=== PATIENT | female | born 1950 ===

== ENCOUNTER 2017-11-04 08:13 | Observation (INO) | payer BC ==
[2017-11-04] MEDS ORDERED: Sodium Chloride 0.9% 2.5 ML Syringe FLUSH PRN (08:23)
[2017-11-04] MEDS ORDERED: Sodium Chloride 0.9% 10 ML Syringe FLUSH PRN (08:23)
[2017-11-04] MEDS ORDERED: Sodium Chloride 0.9% 1,000 ML IV ONE (08:23)
[2017-11-04] MEDS ORDERED: Aspirin 81 MG Tab.Chew PO ONE (08:23)
[2017-11-04] MEDS ORDERED: LORazepam 2 MG/ML MDV IVPUSH ONE (08:24)
--- NOTE | 2017-11-04 08:28 | EDM.PDOC ---
ED HPI GENERAL MEDICAL PROBLEM - General Chief Complaint: Respiratory Problem Stated Complaint: CHEST PAIN Time Seen by Provider: 11/04/17 08:16 Source of Information: Reports: Patient History Limitations: Reports: No Limitations - History of Present Illness INITIAL COMMENTS - FREE TEXT/NARRATIVE: History of present illness: []Patient presents with shortness of breath and chest pain with breathing. Patient was seen by her doctor yesterday for cough and feels upset that she was not admitted to get her blood sugar down and that she was not prescribed cough medicine. She is also upset stating that this episode started she was at work and she feels that she has a boss that dislikes her and is trying to get her fired. Review of systems: As per history of present illness and below otherwise all systems reviewed and negative. Past medical history: As per history of present illness and as reviewed below otherwise noncontributory. Surgical history: As per history of present illness and as reviewed below otherwise noncontributory. Social history: No reported history of drug or alcohol abuse. Family history: As per history of present illness and as reviewed below otherwise noncontributory. Physical exam: General: Well developed, well nourished, hyperventilating HEENT: Atraumatic, normocephalic, pupils reactive, negative for conjunctival pallor or scleral icterus, mucous membranes moist, throat clear, neck supple, nontender, trachea midline. Lungs: Clear to auscultation, breath sounds equal bilaterally, chest nontender. Heart: S1S2, regular, negative for clicks, rubs, or JVD. Abdomen: Soft, nondistended, nontender. Negative for masses or hepatosplenomegaly. Negative for costovertebral tenderness. Pelvis: Stable nontender. Genitourinary: Deferred. Rectal: Deferred. Extremities: Atraumatic, negative for cords or calf pain. Neurovascular unremarkable. Neuro: Awake, alert, oriented. Cranial nerves II through XII unremarkable. Cerebellum unremarkable. Motor and sensory unremarkable throughout. Exam nonfocal. Diagnostics: []Labs showed glucose of 377 with a CO2 of 17. Repeat glucose after insulin was 88. Therapeutics: []Patient was given some IV hydration, insulin and Ativan for her hyperventilation Impression: []Uncontrolled diabetes, dehydration, anxiety Plan: []Admit for observation for IV fluids and glucose control to the hospitalist Definitive disposition and diagnosis as appropriate pending reevaluation and review of above. - Related Data Allergies Allergy/AdvReac Type Severity Reaction Status Date / Time No Known Allergies Allergy Verified 11/04/17 08:14 Home Meds: Home Meds Multivitamin [Multi-Vitamin Daily] 1 each PO DAILY 04/30/16 [History] Past Medical History HEENT History: Reports: None Cardiovascular History: Reports: None Respiratory History: Reports: None Gastrointestinal History: Reports: None Genitourinary History: Reports: None [employer] History: Reports: Musculoskeletal History: Reports: None Neurological History: Reports: None Psychiatric History: Reports: None Endocrine/Metabolic History: Reports: Diabetes, Type II Hematologic History: Reports: None Immunologic History: Reports: None Oncologic (Cancer) History: Reports: None Dermatologic History: Reports: None - Past Surgical History Head Surgeries/Procedures: Reports: None HEENT Surgical History: Reports: Tonsillectomy Cardiovascular Surgical History: Reports: None Respiratory Surgical History: Reports: None GI Surgical History: Reports: Cholecystectomy Female Surgical History: Reports: Section Endocrine Surgical History: Reports: None Neurological Surgical History: Reports: None Musculoskeletal Surgical History: Reports: None Oncologic Surgical History: Reports: None Dermatological Surgical History: Reports: None Social & Family History - Family History Family Medical History: Noncontributory - Tobacco Use Smoking Status *Q: Never Smoker - Caffeine Use Caffeine Use: Reports: Coffee - Recreational Drug Use Recreational Drug Use: No ED ROS GENERAL - Review of Systems Review Of Systems: See Below (See history of present illness) ED EXAM, GENERAL - Physical Exam Exam: See Below (See history of present illness) Course - Vital Signs Last Recorded V/S: Last Vital Signs Temp 96.9 F 11/04/17 08:15 Pulse 67 11/04/17 10:42 Resp 18 11/04/17 10:42 BP 114/90 11/04/17 10:42 Pulse Ox 99 11/04/17 10:42 - Orders/Labs/Meds Orders: Active Orders 24 hr Category Date Time Status Patient Status [ADT] Stat ADT 11/04/17 11:13 Active EKG Documentation Completion [RC] STAT Care 11/04/17 08:23 Active POC Glucose [Blood Glucose Check, Bedside] [RC] ONETIME Care 11/04/17 11:02 Active Sodium Chloride 0.9% [Normal Saline] 500 ml Med 11/04/17 09:00 Active IV STAT Sodium Chloride 0.9% [Saline Flush] Med 11/04/17 08:23 Active 10 ml FLUSH ASDIRECTED PRN Sodium Chloride 0.9% [Saline Flush] Med 11/04/17 08:23 Active 2.5 ml FLUSH ASDIRECTED PRN Saline Lock Insert [OM.PC] Stat Oth 11/04/17 08:23 Ordered Medication Orders Sodium Chloride (Normal Saline) 500 mls @ 999 mls/hr IV STAT KENIA Last Admin: 11/04/17 08:56 Dose: 999 mls/hr Sodium Chloride (Saline Flush) 10 ml FLUSH ASDIRECTED PRN PRN Reason: Keep Vein Open Sodium Chloride (Saline Flush) 2.5 ml FLUSH ASDIRECTED PRN PRN Reason: Keep Vein Open Labs: Laboratory Tests 11/04/17 11/04/17 11/04/17 Range/Units 08:36 08:36 10:48 WBC 7.03 (4.0-11.0) K/uL RBC 4.78 (4.30-5.90) M/uL Hgb 14.9 (12.0-16.0) g/dL Hct 40.9 (36.0-46.0) % MCV 85.6 (80.0-98.0) fL MCH 31.2 (27.0-32.0) pg MCHC 36.4 (31.0-37.0) g/dL RDW Std Deviation 38.5 (28.0-62.0) fl RDW Coeff of Bulmaro 12 (11.0-15.0) % Plt Count 226 (150-400) K/uL MPV 9.90 (7.40-12.00) fL Neut % (Auto) 43.5 L (48.0-80.0) % Lymph % (Auto) 47.5 H (16.0-40.0) % [place] % (Auto) 8.3 (0.0-15.0) % Eos % (Auto) 0.6 (0.0-7.0) % Baso % (Auto) 0.1 (0.0-1.5) % Neut # (Auto) 3.1 (1.4-5.7) K/uL Lymph # (Auto) 3.3 H (0.6-2.4) K/uL [place] # (Auto) 0.6 (0.0-0.8) K/uL Eos # (Auto) 0.0 (0.0-0.7) K/uL Baso # (Auto) 0.0 (0.0-0.1) K/uL Nucleated RBC % 0.0 /100WBC Nucleated RBCs # 0 K/uL Sodium 135 L (136-146) mmol/L Potassium 3.7 (3.5-5.1) mmol/L Chloride 105 (98-110) mmol/L Carbon Dioxide 17 L (21-31) mmol/L BUN 14 (6.0-23.0) mg/dL Creatinine 0.8 (0.6-1.5) mg/dL Est Cr Clr Drug Dosing 58.77 mL/min Estimated GFR (MDRD) > 60.0 ml/min Glucose 337 H (60-110) mg/dL Calcium 9.2 (8.8-10.8) mg/dL Total Bilirubin 0.7 (0.1-1.5) mg/dL AST 11 (5-40) IU/L ALT 17 (8-54) IU/L Alkaline Phosphatase 111 (40-150) Troponin I < 0.10 (0.0-0.29) NG/ML Total Protein 6.8 (6.0-8.0) g/dL Albumin 3.8 (3.4-4.8) g/dL Globulin 3.0 (2.0-3.5) g/dL Albumin/Globulin Ratio 1.3 (1.3-2.8) Urine Color YELLOW Urine Appearance CLEAR Urine pH 6.0 (5.0-8.0) Ur Specific [place] 1.015 (1.001-1.035) Urine Protein NEGATIVE (NEGATIVE) mg/dL Urine Glucose (UA) >=1000 (NEGATIVE) mg/dL Urine Ketones 15 H (NEGATIVE) mg/dL Urine Occult Blood NEGATIVE (NEGATIVE) Urine Nitrite NEGATIVE (NEGATIVE) Urine Bilirubin NEGATIVE (NEGATIVE) Urine Urobilinogen 0.2 (<2.0) EU/dL Ur Leukocyte Esterase NEGATIVE (NEGATIVE) Urine RBC 0-1 (0-2/HPF) Urine WBC 0-1 (0-5/HPF) Ur Epithelial Cells RARE (NONE-FEW) Urine Bacteria RARE (NEGATIVE) Meds: Medications Generic Name Dose Route Start Last Admin Trade Name Michele PRN Reason Stop Dose Admin Sodium Chloride 500 mls @ 999 mls/hr 11/04/17 09:00 11/04/17 08:56 Normal Saline IV 999 mls/hr STAT KENIA Administration Sodium Chloride 10 ml 11/04/17 08:23 Saline Flush FLUSH ASDIRECTED PRN Keep Vein Open Sodium Chloride 2.5 ml 11/04/17 08:23 Saline Flush FLUSH ASDIRECTED PRN Keep Vein Open Discontinued Medications Generic Name Dose Route Start Last Admin Trade Name Michele PRN Reason Stop Dose Admin Aspirin 324 mg 11/04/17 08:23 11/04/17 08:57 Aspirin PO 11/04/17 08:24 324 mg ONETIME ONE Administration Sodium Chloride 1,000 mls @ 999 mls/hr 11/04/17 08:23 11/04/17 09:18 Normal Saline IV 11/04/17 09:23 Not Given .Bolus ONE Insulin Human Regular 10 unit 11/04/17 10:17 11/04/17 10:43 Novolin R IVPUSH 11/04/17 10:18 10 units ONETIME ONE Administration Protocol Lorazepam 1 mg 11/04/17 08:24 11/04/17 08:57 Ativan IVPUSH 11/04/17 08:25 1 mg ONETIME ONE Administration Departure - Departure Time of Disposition: 11:56 Disposition: Refer to Observation Condition: Good Clinical Impression: Uncontrolled diabetes mellitus Qualifiers: Diabetes mellitus type: type 1 Diabetes mellitus complication status: without complication Qualified Code(s): E10.65 - Type 1 diabetes mellitus with hyperglycemia - Discharge Information - My Orders Last 24 Hours: My Active Orders 11/04/17 08:23 EKG Documentation Completion [RC] STAT Sodium Chloride 0.9% [Saline Flush] 10 ml FLUSH ASDIRECTED PRN Sodium Chloride 0.9% [Saline Flush] 2.5 ml FLUSH ASDIRECTED PRN Saline Lock Insert [OM.PC] Stat 11/04/17 09:00 Sodium Chloride 0.9% [Normal Saline] 500 ml IV STAT 11/04/17 11:02 POC Glucose [Blood Glucose Check, Bedside] [RC] ONETIME 11/04/17 11:13 Patient Status [ADT] Stat - Assessment/Plan Last 24 Hours: My Active Orders 11/04/17 08:23 EKG Documentation Completion [RC] STAT Sodium Chloride 0.9% [Saline Flush] 10 ml FLUSH ASDIRECTED PRN Sodium Chloride 0.9% [Saline Flush] 2.5 ml FLUSH ASDIRECTED PRN Saline Lock Insert [OM.PC] Stat 11/04/17 09:00 Sodium Chloride 0.9% [Normal Saline] 500 ml IV STAT 11/04/17 11:02 POC Glucose [Blood Glucose Check, Bedside] [RC] ONETIME 11/04/17 11:13 Patient Status [ADT] Stat
[2017-11-04] MEDS ORDERED: Sodium Chloride 0.9% 500 ML IV SCH (09:00)
--- NOTE | 2017-11-04 09:07 | CR ---
EXAMINATION: Portable chest radiograph. HISTORY: Shortness of breath. FINDINGS: The trachea is midline. The cardiomediastinal silhouette is within normal limits. No pulmonary infilt rates, effusions or pneumothorax. Osseous structures appear unremarkable. IMPRESSION: No acute cardiopulmonary process.
[2017-11-04 09:09] LABS: CHLORIDE,CL 105 mmol/L (98-110); SODIUM,NA 135 mmol/L (136-146)
[2017-11-04] MEDS ORDERED: Insulin Regular, Human 100 Units/ML 10 ML Vial IVPUSH ONE (10:17)
--- NOTE | 2017-11-04 11:41 | PCM.HP ---
H&P History of Present Illness - General Date of Service: 11/04/17 Admit Problem/Dx: Admission Diagnosis/Problem Admission Diagnosis/Problem Diabetes mellitus Source of Information: Patient History Limitations: Reports: No Limitations - History of Present Illness Initial Comments - Free Text/Narative: 66 yo female presenting to ER with a chief complaint of sob and mild chest pain with pmh of type II diabetes. Patient intially presented to the residency clinic where Dr. Maloney is her PCP. She was complaining of sob and chest pain so was sent to the ED for further evaluation. States the chest pain is continuous mild without radiation left substernal without associated n/v or diaphoresis. She also reports anxiety and has been hyperventilating and feeling short of breath. She was seen the previous Saturday by her PCP Dr. Maloney for mild sob and elevated sugars (300 's) but was not admitted at that time. In the ED, CBC and CXR were unremarkable. CMP revealed decreased bicarbonate 17 and hyperglycemia at 337. Initial troponin was negative. Patient was mildly hypertensive with a blood pressure 156/56 with 100% oxygenation on room air. Patient was admitted for shortness of breath/chest pain. 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: Musculoskeletal History: Reports: None Neurological History: Reports: None Psychiatric History: Reports: None Endocrine/Metabolic History: Reports: Diabetes, Type II Hematologic History: Reports: None Immunologic History: Reports: None Oncologic (Cancer) History: Reports: None Dermatologic History: Reports: None - Past Surgical History Head Surgeries/Procedures: Reports: None HEENT Surgical History: Reports: Tonsillectomy Cardiovascular Surgical History: Reports: None Respiratory Surgical History: Reports: None GI Surgical History: Reports: Cholecystectomy Female Surgical History: Reports: Section Endocrine Surgical History: Reports: None Neurological Surgical History: Reports: None Musculoskeletal Surgical History: Reports: None Oncologic Surgical History: Reports: None Dermatological Surgical History: Reports: None Social & Family History - Family History Family Medical History: Noncontributory - Tobacco Use Smoking Status *Q: Never Smoker - Caffeine Use Caffeine Use: Reports: Coffee - Recreational Drug Use Recreational Drug Use: No H&P Review of Systems - Review of Systems: Review Of Systems: See Below General: Denies: Fever HEENT: Reports: Headaches. Denies: Sinus Congestion, Sore Throat Pulmonary: Reports: Shortness of Breath. Denies: Wheezing, Cough, Sputum Cardiovascular: Reports: Chest Pain. Denies: Palpitations, Edema Gastrointestinal: Denies: Abdominal Pain, Diarrhea, Nausea, Vomiting Genitourinary: Denies: Dysuria, Hematuria Musculoskeletal: Denies: Neck Pain, Leg Pain Skin: Denies: Cyanosis Psychiatric: Reports: Anxiety. Denies: Confusion Neurological: Reports: Headache. Denies: Confusion, Dizziness, Numbness Hematologic/Lymphatic: Denies: Anemia Exam - Exam Exam: See Below - Vital Signs Vital Signs: Last Vital Signs Temp 96.9 F 11/04/17 08:15 Pulse 67 11/04/17 10:42 Resp 18 11/04/17 10:42 BP 114/90 11/04/17 10:42 Pulse Ox 99 11/04/17 10:42 Weight: 58.695 kg - Exam Quality Assessment: DVT Prophylaxis General: Alert, Oriented, Cooperative HEENT: Conjunctiva Clear, EACs Clear, EOMI, Hearing Intact, Mucosa Moist & [place] , Nares Patent, Normal Nasal Septum, Posterior Pharynx Clear, PERRLA Neck: Supple, Trachea Midline, 2 Lungs: Clear to Auscultation, Normal Respiratory Effort Cardiovascular: Regular Rate, Regular Rhythm, Normal S1, Normal S2 GI/Abdominal Exam: Normal Bowel Sounds, Soft, Non-Tender, No Organomegaly, No Distention Back Exam: Normal Inspection Extremities: Normal Inspection, Non-Tender, No Pedal Edema, Normal Capillary Refill. No: Garima's Sign Peripheral Pulses: 2+: Radial (L), Radial (R), Posterior Tibial (L), Posterior Tibial (R), Dorsalis Pedis (L), Dorsalis Pedis (R) Skin: Warm, Dry, Intact Neurological: Cranial Nerves Intact Neuro Extensive - Mental Status: Alert, Oriented x3, Normal Mood/Affect, Normal Cognition Neuro Extensive - Motor, Sensory, Reflexes: CN II-XII Intact Psychiatric: Alert, Normal Affect, Normal Mood - Patient Data Lab Results Last 24 hrs: Laboratory Results - last 24 hr 11/04/17 11/04/17 11/04/17 Range/Units 08:36 08:36 10:48 WBC 7.03 (4.0-11.0) K/uL RBC 4.78 (4.30-5.90) M/uL Hgb 14.9 (12.0-16.0) g/dL Hct 40.9 (36.0-46.0) % MCV 85.6 (80.0-98.0) fL MCH 31.2 (27.0-32.0) pg MCHC 36.4 (31.0-37.0) g/dL RDW Std Deviation 38.5 (28.0-62.0) fl RDW Coeff of [place]maro 12 (11.0-15.0) % Plt Count 226 (150-400) K/uL MPV 9.90 (7.40-12.00) fL Neut % (Auto) 43.5 L (48.0-80.0) % Lymph % (Auto) 47.5 H (16.0-40.0) % [place] % (Auto) 8.3 (0.0-15.0) % Eos % (Auto) 0.6 (0.0-7.0) % Baso % (Auto) 0.1 (0.0-1.5) % Neut # (Auto) 3.1 (1.4-5.7) K/uL Lymph # (Auto) 3.3 H (0.6-2.4) K/uL [place] # (Auto) 0.6 (0.0-0.8) K/uL Eos # (Auto) 0.0 (0.0-0.7) K/uL Baso # (Auto) 0.0 (0.0-0.1) K/uL Nucleated RBC % 0.0 /100WBC Nucleated RBCs # 0 K/uL Sodium 135 L (136-146) mmol/L Potassium 3.7 (3.5-5.1) mmol/L Chloride 105 (98-110) mmol/L Carbon Dioxide 17 L (21-31) mmol/L BUN 14 (6.0-23.0) mg/dL Creatinine 0.8 (0.6-1.5) mg/dL Est Cr Clr Drug Dosing 58.77 mL/min Estimated GFR (MDRD) > 60.0 ml/min Glucose 337 H (60-110) mg/dL Calcium 9.2 (8.8-10.8) mg/dL Total Bilirubin 0.7 (0.1-1.5) mg/dL AST 11 (5-40) IU/L ALT 17 (8-54) IU/L Alkaline Phosphatase 111 (40-150) Troponin I < 0.10 (0.0-0.29) NG/ML Total Protein 6.8 (6.0-8.0) g/dL Albumin 3.8 (3.4-4.8) g/dL Globulin 3.0 (2.0-3.5) g/dL Albumin/Globulin Ratio 1.3 (1.3-2.8) Urine Color YELLOW Urine Appearance CLEAR Urine pH 6.0 (5.0-8.0) Ur Specific [place] 1.015 (1.001-1.035) Urine Protein NEGATIVE (NEGATIVE) mg/dL Urine Glucose (UA) >=1000 (NEGATIVE) mg/dL Urine Ketones 15 H (NEGATIVE) mg/dL Urine Occult Blood NEGATIVE (NEGATIVE) Urine Nitrite NEGATIVE (NEGATIVE) Urine Bilirubin NEGATIVE (NEGATIVE) Urine Urobilinogen 0.2 (<2.0) EU/dL Ur Leukocyte Esterase NEGATIVE (NEGATIVE) Urine RBC 0-1 (0-2/HPF) Urine WBC 0-1 (0-5/HPF) Ur Epithelial Cells RARE (NONE-FEW) Urine Bacteria RARE (NEGATIVE) Result Diagrams: 11/04/17 08:36 11/04/17 08:36 *Q Meaningful Use (ADM) - VTE *Q VTE Criteria *Q: - Stroke *Q Stroke Criteria *Q: - AMI *Q AMI Criteria *Q: - Problem List (1) Shortness of breath SNOMED Code(s): 601487253 ICD Code: R06.02 - SHORTNESS OF BREATH Status: Acute Priority: High Current Visit: Yes (2) Atypical chest pain SNOMED Code(s): 666856530 ICD Code: R07.89 - OTHER CHEST PAIN Status: Acute Priority: High Current Visit: Yes (3) Uncontrolled diabetes mellitus SNOMED Code(s): 279637767 ICD Code: E11.65 - TYPE 2 DIABETES MELLITUS WITH HYPERGLYCEMIA Status: Acute Priority: High Current Visit: Yes Qualifiers: Diabetes mellitus type: type 2 Diabetes mellitus complication status: without complication Diabetes mellitus usp insulin use: without usp use Qualified Code(s): E11.65 - Type 2 diabetes mellitus with hyperglycemia Problem List Initiated/Reviewed/Updated: Yes Orders Last 24hrs: Active Orders 24 hr Category Date Time Status Patient Status [ADT] Stat ADT 11/04/17 11:13 Active EKG Documentation Completion [RC] STAT Care 11/04/17 08:23 Active POC Glucose [Blood Glucose Check, Bedside] [RC] ONETIME Care 11/04/17 11:02 Active Sodium Chloride 0.9% [Normal Saline] 500 ml Med 11/04/17 09:00 Active IV STAT Sodium Chloride 0.9% [Saline Flush] Med 11/04/17 08:23 Active 10 ml FLUSH ASDIRECTED PRN Sodium Chloride 0.9% [Saline Flush] Med 11/04/17 08:23 Active 2.5 ml FLUSH ASDIRECTED PRN Saline Lock Insert [OM.PC] Stat Oth 11/04/17 08:23 Ordered Medication Orders Sodium Chloride (Normal Saline) 500 mls @ 999 mls/hr IV STAT KENIA Last Admin: 11/04/17 08:56 Dose: 999 mls/hr Sodium Chloride (Saline Flush) 10 ml FLUSH ASDIRECTED PRN PRN Reason: Keep Vein Open Sodium Chloride (Saline Flush) 2.5 ml FLUSH ASDIRECTED PRN PRN Reason: Keep Vein Open Assessment/Plan Comment:: 66 yo female admitted 11/04/16 for sob/atypical chest and hyperglycemia. SOB: Most likely anxiety related. Improved with anxiolytics. Bicarb low at 17 most likely due to hyperventilation with anxiety. Will monitor. atypical chest pain: Most likely anxiety related will trend toponin Hyperglycemia: Uncontrolled diabetes will start ISS medium dose and have diabetic ed talk with patient. VTE: Heparin, SCD Dispo: 1-2 days.
[2017-11-04] MEDS ORDERED: oxyCODONE 5 MG Tab PO PRN (12:30)
[2017-11-04] MEDS ORDERED: Acetaminophen 325 MG Tab PO PRN (12:30)
[2017-11-04] MEDS ORDERED: Ondansetron 4 MG Tab.DIS PO PRN (12:30)
[2017-11-04] MEDS ORDERED: Morphine 10 MG/ML Syringe IVPUSH PRN (12:30)
[2017-11-04] MEDS: Heparin Sodium 5,000 Units/ML Vial SUBCUT SCH ×2 (12:56→21:27)
--- NOTE | 2017-11-04 14:59 | PCM.SN ---
- Free Text/Narrative Note: Talked with [facility] diabetic ed. She has seen patient last saturday and states is afraid of needles but was able to start her on tresiba 15 units last saturday. Still sugars high so will try lantus 20 units and add glimepiride 2 mg as patient unable to afford other medications. Will monitor sugars while in house.
[2017-11-04] MEDS ORDERED: Insulin Aspart 100 Units/ML 3 ML Pen SUBCUT SCH (17:00)
[2017-11-04] MEDS: Insulin Aspart 100 Units/ML 3 ML Pen SUBCUT SCH (17:23)
[2017-11-04] MEDS ORDERED: Insulin Glargine,Human Rec. Analog 100 Units/ML 3 ML Pen SUBCUT SCH (21:00)
[2017-11-05] MEDS: Heparin Sodium 5,000 Units/ML Vial SUBCUT SCH ×2 (05:28→11:34)
[2017-11-05 05:56] LABS: CHLORIDE,CL 107 mmol/L (98-110); SODIUM,NA 137 mmol/L (136-146)
[2017-11-05] MEDS: Insulin Aspart 100 Units/ML 3 ML Pen SUBCUT SCH ×2 (07:34→11:22)
[2017-11-05] MEDS ORDERED: Glimepiride 4 MG Tab PO SCH (08:00)
[2017-11-05] MEDS ORDERED: Benzonatate 100 MG Cap PO PRN (09:38)
--- NOTE | 2017-11-05 11:34 | PCM.DCSUM1 ---
Discharge Summary - Hospital Course Brief History: 66 yo female presenting to ER with a chief complaint of sob and mild chest pain with pmh of type II diabetes. Patient intially presented to the residency clinic where Dr. Randall is her PCP. She was complaining of sob and chest pain so was sent to the ED for further evaluation. States the chest pain is continuous mild without radiation left substernal without associated n/ v or diaphoresis. She also reports anxiety and has been hyperventilating and feeling short of breath. She was seen the previous Saturday by her PCP Dr. Randall for mild sob and elevated sugars (300's) but was not admitted at that time. In the ED, CBC and CXR were unremarkable. CMP revealed decreased bicarbonate 17 and hyperglycemia at 337. Initial troponin was negative. Patient was mildly hypertensive with a blood pressure 156/56 with 100% oxygenation on room air. Patient was admitted for shortness of breath/chest pain. - Discharge Data Discharge Date: 11/05/17 Discharge Disposition: Home, Self-Care 01 Condition: Good - Patient Summary/Data Consults: Consultations 11/04/17 12:30 Consult to Diabetic Nurse Specialist [CONS] Routine - Patient Instructions Diet: Diabetic Diet Activity: No Strenuous Activities, Rest and Relax Today - Discharge Plan Prescriptions/Med Rec: Albuterol [IJP: Ventolin HFA] 2 puff INH Q4H PRN #1 inh PRN Reason: dyspnea,wheezing Benzonatate [Tessalon Perles] 100 mg PO TID PRN #30 cap PRN Reason: Cough Glimepiride [Amaryl] 2 mg PO DAILY #30 tablet Home Medications: Home Meds Multivitamin [Multi-Vitamin Daily] 1 each PO DAILY 04/30/16 [History] Albuterol [IJP: Ventolin HFA] 2 puff INH Q4H PRN #1 inh 11/05/17 [Rx] Benzonatate [Tessalon Perles] 100 mg PO TID PRN #30 cap 11/05/17 [Rx] Glimepiride [Amaryl] 2 mg PO DAILY #30 tablet 11/05/17 [Rx] Non-Formulary Medication [NF Drug] 20 unit SUBCUT .TRESIBA EVERY PM #0 11/05/17 [Rx] Referrals: Red Randall [Resident] - 11/14/17 9:30 am - Discharge Summary/Plan Comment DC Time >30 min.: No Discharge Summary/Plan Comment: Discharge Diagnoses Pleuritic chest pain- URI induced likely viral Uncontrolled DM type 2 Lyn was admitted and monitored regarding chest pain. ACS ruled out Telemetry remained SR with no ectopy or ST segment changes. She continues to have some chest pain, mainly when she coughs. She is coughing quite a bit, non productive. No fevers and no leukocytosis, she reports this cough has been going on for a couple weeks. Likely some bronchitis and pleuritic pain. I will give her Albuterol inhaler for at home use and some Tessalon pearls. Regarding her BS, they decreased to 200s fasting this morning, with the addition of Glimepiride 2 mg daily and increased her long acting insulin to 20 units, with recommendations from Lucia Watson, DM educator. I will discharge her home today, she is feel better and no longer having chest pain or SOB. She will increase her Tresiba to 20 units every evening and add Glimepiride 2 mg daily. She will follow up with Lucia next week November [address] Randall November 14. She was highly encouraged to continue with current treatment plan, to lower her blood sugars. She reports having blurred vision, which has improved slightly and she was educated this may continue to improve as BS improve as well. She worries about gaining weight as she controls her BS. She was encouraged to follow a good ADA diet and this could limit her weight gain. She is to return to ED or clinic if concerns should arise. - General Info Date of Service: 11/05/17 Admission Dx/Problem (Free Text: Admission Diagnosis/Problem Admission Diagnosis/Problem Diabetes mellitus Subjective Update: Annette woodward bed, at bedside. Reports feeling ok today continues to cough, non productive. Denies chest pain at rest, only when she coughs. No palpable chest pain. SOB has improved as well. Functional Status: Reports: Pain Controlled, Tolerating Diet, Ambulating, Urinating - Review of Systems General: Reports: No Symptoms. Denies: Fever, Fatigue Pulmonary: Reports: Pleuritic Chest Pain, Cough. Denies: Sputum, Wheezing Cardiovascular: Reports: No Symptoms. Denies: Chest Pain, Palpitations, Edema, Lightheadedness Gastrointestinal: Reports: No Symptoms. Denies: Abdominal Pain, Nausea, Vomiting Genitourinary: Reports: No Symptoms. Denies: Dysuria, Frequency, Burning Neurological: Reports: No Symptoms. Denies: Confusion Psychiatric: Reports: No Symptoms. Denies: Confusion - Patient Data Vitals - Most Recent: Last Vital Signs Temp 98 F 11/05/17 08:00 Pulse 80 11/05/17 08:00 Resp 18 11/05/17 08:00 BP 124/70 11/05/17 08:00 Pulse Ox 95 11/05/17 08:00 Weight - Most Recent: 59.602 kg I&O - Last 24 hours: Intake & Output 11/04/17 11/05/17 11/05/17 22:59 06:59 14:59 Intake Total 236 320 Output Total 0 400 Balance 236 -80 Lab Results - Last 24 hrs: Laboratory Results - last 24 hr 11/04/17 11/04/17 11/04/17 Range/Units 11:55 14:33 17:00 WBC (4.0-11.0) K/uL RBC (4.30-5.90) M/uL Hgb (12.0-16.0) g/dL Hct (36.0-46.0) % MCV (80.0-98.0) fL MCH (27.0-32.0) pg MCHC (31.0-37.0) g/dL RDW Std Deviation (28.0-62.0) fl RDW Coeff of Bulmaro (11.0-15.0) % Plt Count (150-400) K/uL MPV (7.40-12.00) fL Neut % (Auto) (48.0-80.0) % Lymph % (Auto) (16.0-40.0) % [place] % (Auto) (0.0-15.0) % Eos % (Auto) (0.0-7.0) % Baso % (Auto) (0.0-1.5) % Neut # (Auto) (1.4-5.7) K/uL Lymph # (Auto) (0.6-2.4) K/uL [place] # (Auto) (0.0-0.8) K/uL Eos # (Auto) (0.0-0.7) K/uL Baso # (Auto) (0.0-0.1) K/uL Nucleated RBC % /100WBC Nucleated RBCs # K/uL Sodium (136-146) mmol/L Potassium (3.5-5.1) mmol/L Chloride (98-110) mmol/L Carbon Dioxide (21-31) mmol/L BUN (6.0-23.0) mg/dL Creatinine (0.6-1.5) mg/dL Est Cr Clr Drug Dosing mL/min Estimated GFR (MDRD) ml/min Glucose (60-110) mg/dL POC Glucose 88 209 H (60-110) mg/dL Calcium (8.8-10.8) mg/dL Troponin I < 0.10 (0.0-0.29) NG/ML 11/04/17 11/05/17 11/05/17 Range/Units 21:29 05:00 05:00 WBC 5.84 (4.0-11.0) K/uL RBC 4.63 (4.30-5.90) M/uL Hgb 14.1 (12.0-16.0) g/dL Hct 40.5 (36.0-46.0) % MCV 87.5 (80.0-98.0) fL MCH 30.5 (27.0-32.0) pg MCHC 34.8 (31.0-37.0) g/dL RDW Std Deviation 40.5 (28.0-62.0) fl RDW Coeff of Bulmaro 13 (11.0-15.0) % Plt Count 216 (150-400) K/uL MPV 10.50 (7.40-12.00) fL Neut % (Auto) 35.7 L (48.0-80.0) % Lymph % (Auto) 52.7 H (16.0-40.0) % [place] % (Auto) 8.9 (0.0-15.0) % Eos % (Auto) 2.4 (0.0-7.0) % Baso % (Auto) 0.3 (0.0-1.5) % Neut # (Auto) 2.1 (1.4-5.7) K/uL Lymph # (Auto) 3.1 H (0.6-2.4) K/uL [place] # (Auto) 0.5 (0.0-0.8) K/uL Eos # (Auto) 0.1 (0.0-0.7) K/uL Baso # (Auto) 0.0 (0.0-0.1) K/uL Nucleated RBC % 0.0 /100WBC Nucleated RBCs # 0 K/uL Sodium 137 (136-146) mmol/L Potassium 4.3 (3.5-5.1) mmol/L Chloride 107 (98-110) mmol/L Carbon Dioxide 20 L (21-31) mmol/L BUN 11 (6.0-23.0) mg/dL Creatinine 0.6 (0.6-1.5) mg/dL Est Cr Clr Drug Dosing 78.36 mL/min Estimated GFR (MDRD) > 60.0 ml/min Glucose 216 H (60-110) mg/dL POC Glucose 256 H (60-110) mg/dL Calcium 8.7 L (8.8-10.8) mg/dL Troponin I (0.0-0.29) NG/ML 11/05/17 11/05/17 Range/Units 06:53 11:20 WBC (4.0-11.0) K/uL RBC (4.30-5.90) M/uL Hgb (12.0-16.0) g/dL Hct (36.0-46.0) % MCV (80.0-98.0) fL MCH (27.0-32.0) pg MCHC (31.0-37.0) g/dL RDW Std Deviation (28.0-62.0) fl RDW Coeff of Bulmaro (11.0-15.0) % Plt Count (150-400) K/uL MPV (7.40-12.00) fL Neut % (Auto) (48.0-80.0) % Lymph % (Auto) (16.0-40.0) % [place] % (Auto) (0.0-15.0) % Eos % (Auto) (0.0-7.0) % Baso % (Auto) (0.0-1.5) % Neut # (Auto) (1.4-5.7) K/uL Lymph # (Auto) (0.6-2.4) K/uL [place] # (Auto) (0.0-0.8) K/uL Eos # (Auto) (0.0-0.7) K/uL Baso # (Auto) (0.0-0.1) K/uL Nucleated RBC % /100WBC Nucleated RBCs # K/uL Sodium (136-146) mmol/L Potassium (3.5-5.1) mmol/L Chloride (98-110) mmol/L Carbon Dioxide (21-31) mmol/L BUN (6.0-23.0) mg/dL Creatinine (0.6-1.5) mg/dL Est Cr Clr Drug Dosing mL/min Estimated GFR (MDRD) ml/min Glucose (60-110) mg/dL POC Glucose 198 H 149 H (60-110) mg/dL Calcium (8.8-10.8) mg/dL Troponin I (0.0-0.29) NG/ML Med Orders - Current: Current Medications Acetaminophen (Tylenol) 650 mg PO Q4H PRN PRN Reason: Pain (Mild 1-3)/fever Benzonatate (Tessalon Perles) 100 mg PO TID PRN PRN Reason: Cough Last Admin: 11/05/17 10:10 Dose: 100 mg Glimepiride (Glimepiride) 2 mg PO WITHBREAKFAST [facility] Last Admin: 11/05/17 07:58 Dose: 2 mg Heparin Sodium (Porcine) (Heparin Sodium) 5,000 units SUBCUT Q8H [facility] Last Admin: 11/05/17 05:28 Dose: 5,000 units Sodium Chloride (Normal Saline) 500 mls @ 999 mls/hr IV STAT [facility] Last Admin: 11/04/17 08:56 Dose: 999 mls/hr Insulin Aspart (Novolog) 0 unit SUBCUT TIDAC [facility] PRN Reason: Protocol Last Admin: 11/05/17 11:22 Dose: Not Given Insulin Glargine (Lantus Solostar) 20 units SUBCUT BEDTIME [facility] Last Admin: 11/04/17 21:28 Dose: 20 units Morphine Sulfate (Morphine) 2 mg IVPUSH Q2H PRN PRN Reason: Pain (severe 7-10) Stop: 11/05/17 12:31 Ondansetron HCl (Zofran Odt) 4 mg PO Q4H PRN PRN Reason: nausea, able to take PO Oxycodone HCl (Oxycodone) 5 mg PO Q4H PRN PRN Reason: Pain (moderate 4-6) Sodium Chloride (Saline Flush) 10 ml FLUSH ASDIRECTED PRN PRN Reason: Keep Vein Open Sodium Chloride (Saline Flush) 2.5 ml FLUSH ASDIRECTED PRN PRN Reason: Keep Vein Open Discontinued Medications Aspirin (Aspirin) 324 mg PO ONETIME ONE Stop: 11/04/17 08:24 Last Admin: 11/04/17 08:57 Dose: 324 mg Sodium Chloride (Normal Saline) 1,000 mls @ 999 mls/hr IV .Bolus ONE Stop: 11/04/17 09:23 Last Admin: 11/04/17 09:18 Dose: Not Given Insulin Aspart (Novolog) 0 unit SUBCUT TIDAC [facility] PRN Reason: Protocol Insulin Human Regular (Novolin R) 10 unit IVPUSH ONETIME ONE PRN Reason: Protocol Stop: 11/04/17 10:18 Last Admin: 11/04/17 10:43 Dose: 10 units Lorazepam (Ativan) 1 mg IVPUSH ONETIME ONE Stop: 11/04/17 08:25 Last Admin: 11/04/17 08:57 Dose: 1 mg - Exam General: Reports: Alert, Oriented, Cooperative, No Acute Distress Neck: Reports: Supple Lungs: Reports: Clear to Auscultation, Normal Respiratory Effort Cardiovascular: Reports: Regular Rate, Regular Rhythm Back Exam: Reports: Normal Inspection, Full Range of Motion Extremities: Normal Inspection, Normal Range of Motion, Non-Tender, No Pedal Edema, Normal Capillary Refill Neurological: Reports: No New Focal Deficit Psy/Mental Status: Reports: Alert, Normal Affect, Normal Mood *Q Meaningful Use (DIS) - VTE *Q VTE Criteria *Q: - Stroke *Q Stroke Criteria *Q: - AMI *Q AMI Criteria *Q:
[2017-11-05 12:21] VITALS: BP 105/58
== END 2017-11-05 12:20 | disposition home or self-care (01) ==
LOC: MW.ED 08:13 → MW.MS 11:40
PROVIDERS: ADMIT Family Medicine; ATTEND Family Medicine
DX: R07.2 Precordial pain (principal); E11.65 Type 2 diabetes mellitus with hyperglycemia; F41.9 Anxiety disorder, unspecified; Z79.899 Other long term (current) drug therapy; Z90.49 Acquired absence of other specified parts of digestive tract; Z90.89 Acquired absence of other organs; Z98.890 Other specified postprocedural states
CPT/HCPCS: 36415; 71045; 80048; 80053; 81001; 82962; 83036; 84484; 85025; 93005; 96361; 96374; 96375; 99285; A9270; J1644; J1815; J2060; J7040; 96372; 99284; G0378